=== PATIENT | male | born 1980 ===

== ENCOUNTER → 2017-05-15 | Outpatient (REF) | payer OTHER ==
[2017-05-15 10:42] LABS: NON PROGRESSIVE MOTILITY (c) 11 %; PROGRESSIVE MOTILITY (a) 62 % (>=32); SPERM ABNORMAL FORMS WBC'S NOTED; TOTAL MOTILITY 73 % (>=40)
[2017-05-15 10:43] LABS: % NORMAL FORMS 17 % (>=4); IMMOTILITY 27 %; SPERM# 181.6 M/Ejac (>=39); TOTAL FUNCTIONAL 39.2 M/Ejac.
== END ==
LOC: M LAB REF 10:33
PROVIDERS: ATTEND Student in an Organized Health Care Education/Training Program
DX: N46.8 Other male infertility (principal)